=== PATIENT | female | born 1955 | race Caucasian/White ===

== ENCOUNTER → 2022-01-23 | Day surgery (SDC) | payer OTHER ==
[~2022-01-23] VITALS: Ht 160 cm; Wt 82.5 kg
[~2022-01-23] MED LIST: ACETAMINOPHEN500 M1 PO; BUSPAR5 MG PO; DILTIAZEM 24HR300 M1 PO; HAIR SKIN NAIL VIT PO; MAGNESIUM PO; METOPROLOL SUC100 MG PO; NEURONTIN100 MG PO; NEXIUM20 MG PO; NOVALOG FLEX PEN SC; NOVALOG SC; OS-CAL500 MG PO; SERTRALINE HCL25 MG PO; SYNTHROID100 MCG PO; TRESIBA100 UNIT/1 SC; VIT C PO; VIT D3 PO; XARELTO20 MG PO
[2022-01-23 07:01] LABS: HCT 40.7 % (37.0-47.0); HGB 13.1 g/dl (12.5-16.0); MCH 27.8 pg (25.0-31.0); MCHC 32.2 g/dL (32.0-36.0); MCV 86.2 fL (78.0-100.0); MPV 9.1 fL (6.0-9.5); RBC 4.72 M/uL (4.20-5.40); RDW 12.9 % (11.5-14.0); WBC 7.4 K/uL (4.0-10.5)
[2022-01-23 07:13] LABS: BUN/CREAT RATIO (CALC) 19.2 RATIO; CREATININE 0.73 mg/dL (0.51-0.95)
== END | disposition home or self-care (01) ==
LOC: FAS 06:00
PROVIDERS: Legal Medicine
DX: G56.01 Carpal tunnel syndrome, right upper limb (principal); I10 Essential (primary) hypertension; E10.9 Type 1 diabetes mellitus without complications; E03.9 Hypothyroidism, unspecified; E78.5 Hyperlipidemia, unspecified; K21.9 Gastro-esophageal reflux disease without esophagitis; Z88.6 Allergy status to analgesic agent; Z88.8 Allergy status to other drugs, medicaments and biological substances; Z79.899 Other long term (current) drug therapy
CPT/HCPCS: 36415; 80048; 93005; J0690; J2250; J2405; J2704; J2795; J3010; J7120